=== PATIENT | male | born 1970 | race Caucasian/White ===

== ENCOUNTER 2022-07-28 16:34 | Inpatient (IN) | payer MEDICAID ==
[~2022-07-28] VITALS: Ht 170.2 cm; Wt 61.7 kg
[2022-07-28 17:21] VITALS: BP 119/68
--- NOTE | 2022-07-28 17:21 | NUR ---
pt [facility] to [facility] bed 15 c/o lower abdominal pain w/ noted blood in stool. pt states he's been having pain for the past 3 days. no nausea, vomiting endorsed. stable vitals seating captain. awaiting md berry.
--- NOTE | 2022-07-28 17:38 | NUR ---
dr carolina at bedside for eval
--- NOTE | 2022-07-28 18:07 | NUR ---
laborer [address] at bedside for blood draw.
--- NOTE | 2022-07-28 18:14 | NUR ---
URINE COLLECTED AND SENT TO LAB
[2022-07-28 18:28] LABS: BASOPHILS % (AUTO) 0.1 % (0.0-2.0); EOSINOPHILS % (AUTO) 0.3 % (0.0-6.0); HEMATOCRIT 41 % (39-51); HEMOGLOBIN 13.6 g/dL (13.5-17.5); LYMPHOCYTES # (AUTO) 1.5 K/uL (0.8-4.8); LYMPHOCYTES % (AUTO) 18.8 % (20.0-44.0); MEAN CORPUSCULAR HGB CONC 33 g/dl (31.0-36.0); MEAN CORPUSCULAR VOLUME 87 fL (80-96); MONOCYTES # (AUTO) 1.3 K/uL (0.1-1.30); MONOCYTES % (AUTO) 16.3 % (2.0-12.0); NEUTROPHILS # (AUTO) 5.1 K/uL (1.8-8.9); NEUTROPHILS % (AUTO) 64.5 % (43.0-81.0); PLATELET COUNT (AUTO) 518 K/uL (150-450); RED BLOOD CELL COUNT(AUTO) 4.77 MIL/uL (4.5-6.0); WHITE BLOOD COUNT (AUTO) 7.9 K/uL (4.3-11.0)
[2022-07-28 19:03] LABS: BILIRUBIN,URINE NEGATIVE (NEGATIVE); COLOR,URINE YELLOW (YELLOW); LEUKOCYTE ESTERASE ,URINE NEGATIVE (NEGATIVE); NITRITE, URINE NEGATIVE (NEGATIVE); PROTEIN,URINE TRACE mg/dl (NEGATIVE); UGLUCOSE NEGATIVE (NEGATIVE); UROBILINOGEN,URINE 0.2 EU/dL (0.2)
[2022-07-28 19:04] LABS: ALBUMIN 2.7 g/dL (3.4-5.0); BILIRUBIN,DIRECT 0.1 mg/dL (0.0-0.2); BILIRUBIN,TOTAL 0.4 mg/dL (0.2-1.0); CALCIUM, SERUM 8.2 mg/dL (8.5-10.1); CREATININE 1.2 mg/dL (0.6-1.3); POTASSIUM 3.6 mmol/L (3.5-5.1); TOTAL PROTEIN, SERUM 7.5 g/dL (6.4-8.2)
[2022-07-28 19:16] LABS: BACTERIA,URINE None seen /HPF (None Seen); SQUAMOUS EPITHELIAL CELL,UR 0-2 /HPF (None Seen); URINE AMORPHOUS URATE Few /HPF (None Seen); WBC,URINE 0-2 /HPF (0-3)
--- NOTE | 2022-07-28 20:12 | NUR ---
PT REFUSED IV OR CT; DR. MARTINES AT PT'S BEDSIDE DISCUSSING CARE.
[2022-07-28] MEDS: IV NS 0.9% 1,000 ML IV ONE ×2 (20:22→22:55)
[2022-07-28 22:21] LABS: BAND % (MANUAL) 2 % (0.0-5.0); EOSINOPHILS % (MANUAL) 2 % (0-4); LYMPHOCYTES % (MANUAL) 6 % (16-48); MONOCYTES % (MANUAL) 3 % (0-11.0); NEUTROPHILS % (MANUAL) 87 (42-76)
[2022-07-28] MEDS ORDERED: AZITHROMYCIN 250 MG TABLET PO ONE (22:30)
[2022-07-28] MEDS ORDERED: AZITHROMYCIN 250 MG TABLET ONE (22:38)
--- NOTE | 2022-07-28 22:50 | NUR ---
COVID SWAB COLLECTED
[2022-07-28 23:40] LABS: OCCULT BLOOD STOOL NEGATIVE (NEGATIVE)
[2022-07-29] MEDS ORDERED: Z GUARD REMEDY 4 OZ OINT TP PRN
[2022-07-29] MEDS ORDERED: ACETAMINOPHEN 325 MG TABLET PO PRN
[2022-07-29] MEDS ORDERED: ZOLPIDEM TARTRATE 5 MG TABLET PO PRN
[2022-07-29] MEDS ORDERED: IV NS 0.9% 1,000 ML IV PRN
[2022-07-29] MEDS ORDERED: ACIDOPHILUS/BULGARICUS 1 EACH GRAN.PACK PO SCH
[2022-07-29] MEDS ORDERED: ONDANSETRON HCL/PF 4 MG/2 ML VIAL IVP PRN
[2022-07-29] MEDS ORDERED: MAGNESIUM HYDROXIDE 30 ML UDC PO PRN
[2022-07-29] MEDS ORDERED: MAG HYDROX/AL HYDROX/SIMETH 30 ML UDC PO PRN
[2022-07-29 00:29] LABS: HEMOGLOBIN 12.6 g/dL (13.5-17.5)
--- NOTE | 2022-07-29 01:42 | NUR ---
CALLED FOR REPORT RN NOT READY
--- NOTE | 2022-07-29 02:08 | NUR ---
report given to rn shelby
--- NOTE | 2022-07-29 02:21 | NUR ---
[facility] SENT TO LAB
--- NOTE | 2022-07-29 02:50 | NUR ---
ADMISSION NOTES RECEIVED PT VIA [employer] @5242, ABLE TO AMBULATE TO BED. UPON UNIT ARRIVAL, PATIENT BEGAN ACCUSING STAFF OF "TAKING HIS WEED BAG AND THROWING IT AWAY." ALSO DROPPED CARE ASSOCIATE ON FLOOR WHILE GETTING OFF OF [employer]. AFTER GETTING ANGRY, HE RELUCTANTLY GAVE UP THE CARE ASSOCIATE. PATIENT CONTINUED TO BE VERY HOSTILE AND AGGRESSIVE TOWARDS STAFF. BEGAN YELLING AT STAFF AND SAYING "IM GOING TO KILL YOU" AND "I'M GOING TO SHOOT YOU." REFUSED TO ANSWER ADMISSION QUESTIONS. REFUSED SKIN ASSESSMENT. REFUSED IV FLUIDS. PER REPORT, IV IN RFA #20G BUT UNABLE TO ASSESS. SAFETY PRECAUTIONS IN PLACE: BED IN LOWEST, LOCKED POSITION, SIDERAILS UPx2, AND BRAKES ON. TABLE AND CALL LIGHT WITHIN REACH. Addendum: 07/29/22 at 0332 by BARBARA STOKES RN PT REFUSED VITALS.
--- NOTE | 2022-07-29 06:53 | NUR ---
RN CLOSING NOTES PT IN BED, ASLEEP, AWAKENS TO VERBAL STIMULI. AOx4, ABLE TO MAKE NEEDS KNOWN. ON RA AND TOLERATING WELL. NO SOB NOTED. NO S/X OF RESPIRATORY DISTRESS NOTED. REFUSED TO ANSWER ADMISSION QUESTIONS. REFUSED SKIN ASSESSMENT. REFUSED IV FLUIDS. REFUSED CARE. IV ACCESS IN RFA #22G. IV IS INTACT, PATENT, AND FLUSHING WELL. SAFETY PRECAUTIONS IN PLACE: BED IN LOWEST, LOCKED POSITION, SIDERAILS UPx2, AND BRAKES ON. TABLE AND CALL LIGHT WITHIN REACH. WILL ENDORSE TO ONCOMING SHIFT FOR JAD.
--- NOTE | 2022-07-29 07:30 | NUR ---
ms rn received patient awake,alert,oriented x4,non compliant w/ care of plan,not in any form of distress, respirations even and unlabored,no sob noted,denies any rectal bleeding at this time.all needs attended.
[2022-07-29] MEDS: ACIDOPHILUS/BULGARICUS 1 EACH TAB.CHEW PO SCH ×2 (09:00→13:00)
[2022-07-29] MEDS ORDERED: PANTOPRAZOLE 40 MG VIAL IV SCH (09:00)
--- NOTE | 2022-07-29 09:30 | NUR ---
on clear liquids, refused breakfast st this time.
--- NOTE | 2022-07-29 11:00 | NUR ---
ms rn was seen by dr. becky artis/ merle to go home today.
--- NOTE | 2022-07-29 16:19 | NUR ---
ms rn refused meds at this time, discharge instructions given , went home,all needs attended.
[2022-07-29] MEDS ORDERED: AZITHROMYCIN 500 MG in IV D5W 250 ML IV SCH (22:00)
== END 2022-07-29 16:14 | disposition home or self-care (01) | DRG 253 ==
LOC: ER 16:36 → MED 07-29 01:38
PROVIDERS: ADMIT Nurse Practitioner Acute Care
DX: K92.2 Gastrointestinal hemorrhage, unspecified (principal); E87.1 Hypo-osmolality and hyponatremia; K52.9 Noninfective gastroenteritis and colitis, unspecified; B18.2 Chronic viral hepatitis C; J45.909 Unspecified asthma, uncomplicated; Z59.00 Homelessness unspecified; Z88.0 Allergy status to penicillin; R79.89 Other specified abnormal findings of blood chemistry; E86.1 Hypovolemia; D75.839 Thrombocytosis, unspecified; F10.20 Alcohol dependence, uncomplicated; Y90.9 Presence of alcohol in blood, level not specified; Z20.822 Contact with and (suspected) exposure to COVID-19; F17.200 Nicotine dependence, unspecified, uncomplicated
CPT/HCPCS: 36415; 80048-TC; 80076-TC; 81001; 82272-TC; 83690-TC; 85025-TC; 85027-TC; 85730-TC; 87081-TC; C9803; G0378; J0456; J7030; J7060